=== PATIENT | male | born 2000 | race Caucasian/White ===

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

== ENCOUNTER 2018-01-04 19:47 | Emergency (ER) | payer MEDICAID, OTHER ==
[2018-01-04] MEDS ORDERED: NORCO 5/325 MG PO ONE ×2 (20:13→23:02)
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
[2018-01-04] MEDS ORDERED: NORCO 5/325 MG ONE ×2 (20:35→23:22)
[2018-01-04 23:26] VITALS: BP 142/80; PULSE 80; O2SAT 97
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
== END 2018-01-04 23:45 | disposition home or self-care (01) ==
LOC: ED 19:47
DX: S80.02XA Contusion of left knee, initial encounter (principal); M25.562 Pain in left knee; W20.8XXA Other cause of strike by thrown, projected or falling object, initial encounter
CPT/HCPCS: 73562; 99283; A9270-GY

== ENCOUNTER 2018-01-09 01:50 | Emergency (ER) | payer OTHER ==
[2018-01-09] MEDS ORDERED: BABY ASPIRIN 81 MG CHEW PO ONE (02:10)
[2018-01-09] MEDS ORDERED: LOPRESSOR 5 MG/5 ML INJECTION IV ONE ×2 (02:10→02:16)
[2018-01-09] MEDS ORDERED: Sodium Chloride 0.9% 1000 ML 1,000 ML IV STA (02:10)
[2018-01-09] MEDS ORDERED: Sodium Chloride 0.9% 1000 ML 1,000 ML ONE (02:16)
[2018-01-09] MEDS ORDERED: BABY ASPIRIN 81 MG CHEW ONE (02:16)
--- NOTE | 2018-01-09 02:20 | ERPHSYRPT ---
- History of Present Illness Time Seen by Provider: 01/09/18 02:00 Source: patient Exam Limitations: clinical condition Patient Subjective Stated Complaint: Pt feels his heart racing and causing him to shake all over Triage Nursing Assessment: Pt A&O x3, P 159, BP 168/82, complaining of chest pain, high anxiety, hasn't been taking his blood pressure medications due to being out, vomited twice, diarrhea, bilateral pulses normal Physician History: PATIENT WITH A HISTORY OF AN ANXIETY DISORDER, HYPERTENSION, NONCOMPLIANT WITH BLOOD PRESSURE MEDICATION LISINOPRIL 10 MG DAILY FOR 2 YEARS. HE COMPLAINS OF SEVERE ANXIETY, PALPITATIONS, CHEST TIGHTNESS TONIGHT. HE DENIES STREET DRUG USE, RADIATION OF PAIN TO BACK, JAW, NECK OR ARMS. ADMITS TO HAVING EPISODES OF EMESIS,X 2 AND WATERY DIARRHEA. Timing/Duration: today Activities at Onset: none Location: substernal Chest Pain Radiation: no radiation Severity of Pain-Max: mild Severity of Pain-Current: mild Modifying Factors: Improves With: other (ANXIETY) Nitro Today/Relief: no nitro taken today Aspirin Treatment Today: 81 mg x 4, provided by ED Associated Symptoms: vomiting, other (DIARRHEA) Prior Chest Pain/Cardiac Workup: no prior cardiac workup Allergies/Adverse Reactions: No Known Drug Allergies Allergy (Verified 01/09/18 02:15) Home Medications: Azithromycin 250 mg [Zithromax 250 MG TABLET] 250 mg PO DAILY 01/09/18 [ History] Prednisone 20 mg [Deltasone 20 mg] 20 mg PO DAILY 01/09/18 [History] Hx Tetanus, Diphtheria Vaccination/Date Given: No Hx Influenza Vaccination/Date Given: No Hx Pneumococcal Vaccination/Date Given: No - Review of Systems Constitutional: No Fever, No Chills Eyes: No Symptoms Ears, Nose, & Throat: No Symptoms Respiratory: No Symptoms, No Cough, No Dyspnea Cardiac: Chest Pain, Palpitations, No Edema, No Syncope Abdominal/Gastrointestinal: Nausea, Vomiting, No Abdominal Pain, No Diarrhea Genitourinary Symptoms: No Symptoms, No Dysuria Musculoskeletal: No Symptoms, No Back Pain, No Neck Pain Skin: No Symptoms, No Rash Neurological: No Dizziness, No Focal Weakness, No Sensory Changes Psychological: Anxiety Endocrine: No Symptoms All Other Systems: Reviewed and Negative - Past Medical History Pertinent Past Medical History: No Cardiac History: Hypertension - Past Surgical History Past Surgical History: No - Social History Smoking Status: Former smoker Exposure to second hand smoke: No Drug Use: marijuana Patient Lives Alone: No - Nursing Vital Signs Nursing Vital Signs: Initial Vital Signs Temperature 97.5 F 01/09/18 01:54 Pulse Rate 159 H 01/09/18 01:54 Respiratory Rate 13 01/09/18 01:54 Blood Pressure 168/82 01/09/18 01:54 Pain Scale Pain Intensity 0 - Physical Exam General Appearance: moderate distress, anxiety, other (EPISODES OF CRYING) Eye Exam: PERRL/EOMI, eyes nml inspection Ears, Nose, Throat Exam: normal ENT inspection, moist mucous membranes Neck Exam: normal inspection, non-tender, supple Respiratory Exam: normal breath sounds Cardiovascular Exam: normal heart sounds, tachycardia Gastrointestinal/Abdomen Exam: soft, normal bowel sounds Back Exam: normal inspection Extremity Exam: normal inspection, normal range of motion Neurologic Exam: alert, oriented x 3 Skin Exam: normal color SpO2 Interpretation: normal SpO2: 98 - Radiology Exams Chest X-ray Interpretation: Interpreted by me, Negative Ordered Tests: Active Orders 24 hr Category Date Time Status Dispatcher Relay STAT Care 01/09/18 02:11 Active EKG-ER Only STAT Care 01/09/18 02:10 Active IV Insertion STAT Care 01/09/18 02:10 Active Oxygen-ED Only NASAL CANNULA 2 lpm Care 01/09/18 02:10 Active CHEST 1 VIEW (PORTABLE) Stat Exams 01/09/18 03:19 Taken CBC W DIFF Stat Lab 01/09/18 02:10 Completed CMP Stat Lab 01/09/18 02:10 Completed NT PRO BNP Stat Lab 01/09/18 02:10 Completed PROTIME WITH INR Stat Lab 01/09/18 02:10 Completed TROPONIN Q3H Lab 01/09/18 02:10 Completed TROPONIN Q3H Lab 01/09/18 05:15 Ordered TROPONIN Q3H Lab 01/09/18 08:15 Ordered TROPONIN Q3H Lab 01/09/18 11:15 Ordered TROPONIN Q3H Lab 01/09/18 14:15 Ordered Urine Triage Profile Stat Lab 01/09/18 02:45 Completed Medication Summary Discontinued Medications Generic Name Dose Route Start Last Admin Trade Name Freq PRN Reason Stop Dose Admin Aspirin 324 mg 01/09/18 02:10 01/09/18 02:17 Baby Aspirin 81 Mg Chew PO 01/09/18 02:11 324 mg STAT ONE Administration Aspirin Confirm 01/09/18 02:16 Baby Aspirin 81 Mg Chew Administered 01/09/18 02:17 Dose 324 mg .ROUTE .STK-MED ONE Hydroxyzine HCl 25 mg 01/09/18 03:42 Atarax 25 Mg PO 01/09/18 03:43 STAT ONE Sodium Chloride 1,000 mls @ 999 mls/hr 01/09/18 02:10 01/09/18 02:17 Sodium Chloride 0.9% 1000 Ml IV 01/09/18 03:10 999 mls/hr .Q1H1M STA Administration Sodium Chloride Confirm 01/09/18 02:16 Sodium Chloride 0.9% 1000 Ml Administered 01/09/18 02:17 Dose 1,000 mls @ ud .ROUTE .STK-MED ONE Metoprolol Tartrate 5 mg 01/09/18 02:10 01/09/18 02:17 Lopressor 5 Mg/5 Ml Injection IV 01/09/18 02:11 5 mg STAT ONE Administration Metoprolol Tartrate Confirm 01/09/18 02:16 Lopressor 5 Mg/5 Ml Injection Administered 01/09/18 02:17 Dose 5 mg IV .STK-MED ONE Lab/Rad Data: Laboratory Result Diagrams 01/09/18 02:10 01/09/18 02:10 Laboratory Results 01/09/18 01/09/18 01/09/18 Range/Units 02:45 02:10 02:10 WBC (4.0-10.5) K/mm3 RBC (4.1-5.6) M/mm3 Hgb (12.5-18.0) gm/dl Hct (42-50) % MCV (78-100) fl MCH (26-32) pg MCHC (32-36) g/dl RDW (11.5-14.0) % Plt Count (150-450) K/mm3 MPV (6-9.5) fl Gran % (36.0-66.0) % Lymphocytes % (24.0-44.0) % Monocytes % (0.0-12.0) % Eosinophils % (0.00-5.0) % Basophils % (0.0-0.4) % Basophils # (0-0.4) INR 1.03 (0.8-3.0) Sodium (137-145) mmol/L Potassium (3.5-5.1) mmol/L Chloride (98-107) mmol/L Carbon Dioxide (22-30) mmol/L Anion Gap (5-15) MEQ/L BUN (9-20) mg/dL Creatinine (0.66-1.25) mg/dL Estimated GFR ML/MIN Glucose (74-106) mg/dL Calcium (8.4-10.2) mg/dL Total Bilirubin (0.2-1.3) mg/dL AST (17-59) U/L ALT (0-50) U/L Alkaline Phosphatase (38-126) U/L Troponin I < 0.012 (0.000-0.034) ng/mL NT-Pro-B Natriuret Pep (0-450) pg/mL Serum Total Protein (6.3-8.2) g/dL Albumin (3.5-5.0) g/dL Urine Opiates Level NEGATIVE (NEGATIVE) Ur Methadone NEGATIVE (NEGATIVE) Urine Barbiturates NEGATIVE (NEGATIVE) Ur Phencyclidine (PCP) NEGATIVE (NEGATIVE) Urine Amphetamine NEGATIVE (NEGATIVE) U Benzodiazepine Level POSITIVE (NEGATIVE) Urine Cocaine NEGATIVE (NEGATIVE) Urine Marijuana (THC) POSITIVE (NEGATIVE) 01/09/18 01/09/18 Range/Units 02:10 02:10 WBC 15.8 H (4.0-10.5) K/mm3 RBC 4.80 (4.1-5.6) M/mm3 Hgb 15.1 (12.5-18.0) gm/dl Hct 43.5 (42-50) % MCV 90.6 (78-100) fl MCH 31.5 (26-32) pg MCHC 34.7 (32-36) g/dl RDW 11.9 (11.5-14.0) % Plt Count 378 (150-450) K/mm3 MPV 9.0 (6-9.5) fl Gran % 68.9 H (36.0-66.0) % Lymphocytes % 26.5 (24.0-44.0) % Monocytes % 4.2 (0.0-12.0) % Eosinophils % 0.3 (0.00-5.0) % Basophils % 0.1 (0.0-0.4) % Basophils # 0.02 (0-0.4) INR (0.8-3.0) Sodium 141 (137-145) mmol/L Potassium 3.5 (3.5-5.1) mmol/L Chloride 101 (98-107) mmol/L Carbon Dioxide 23 (22-30) mmol/L Anion Gap 21.5 H (5-15) MEQ/L BUN 21 H (9-20) mg/dL Creatinine 0.75 (0.66-1.25) mg/dL Estimated GFR > 60 ML/MIN Glucose 138 H (74-106) mg/dL Calcium 10.0 (8.4-10.2) mg/dL Total Bilirubin 0.40 (0.2-1.3) mg/dL AST 18 (17-59) U/L ALT 23 (0-50) U/L Alkaline Phosphatase 91 (38-126) U/L Troponin I (0.000-0.034) ng/mL NT-Pro-B Natriuret Pep < 11.1 (0-450) pg/mL Serum Total Protein 8.3 H (6.3-8.2) g/dL Albumin 5.0 (3.5-5.0) g/dL Urine Opiates Level (NEGATIVE) Ur Methadone (NEGATIVE) Urine Barbiturates (NEGATIVE) Ur Phencyclidine (PCP) (NEGATIVE) Urine Amphetamine (NEGATIVE) U Benzodiazepine Level (NEGATIVE) Urine Cocaine (NEGATIVE) Urine Marijuana (THC) (NEGATIVE) - Progress Progress: improved Progress Note: 01/09/18 03:03 ADMINISTERED IV NORMAL SALINE 1 LITER/HR, LOPRESSOR 5MG IV, IMPROVED TO BP 139/ 89 PULSE 89 Counseled pt/family regarding: lab results, diagnosis, need for follow-up, rad results - Departure Time of Disposition: 03:50 Departure Disposition: Home Clinical Impression: HYPERTENSION, ARRHYTHMIA, SUBSTANCE ABUSE Condition: Stable Critical Care Time: No Referrals: LONA PLATA [Primary Care Provider] - Additional Instructions: BEGIN TOPROL XL 25MG, TAKE 1/2 TABLET EACH MORNING. ATARAX 25MG EVERY 6 HOURS NEEDED FOR ANXIETY. CONSULT YOUR PRIMARY CARE PROVIDE R FOR FOLLOWUP IN 1 WEEK Prescriptions: Hydroxyzine HCl 25 mg [Atarax 25 mg] 25 mg PO Q6H PRN PRN 4 Days #15 tablet PRN Reason: Anxiety Metoprolol Succinate 25 mg Xl* [Toprol-Xl 25MG Tablets] 25 mg PO DAILY #15 tab
[2018-01-09 02:21] LABS: BASOPHIL % 0.1 % (0.0-0.4); Basophil (Absolute #) 0.02 (0-0.4); Eosinophil % 0.3 % (0.00-5.0); Eosinophil (Absolute #) 0.04 (0-0.5); Granulocyte Absolute (ANC) 10.86 (1.4-6.9); Granulocytes % 68.9 % (36.0-66.0); Hematocrit 43.5 % (42-50); Hemoglobin 15.1 gm/dl (12.5-18.0); Lymphocyte (Absolute #) 4.18 (1.0-4.6); Lymphocytes % 26.5 % (24.0-44.0); Mean Cell Volume 90.6 fl (78-100); Mean Corpuscular Hemoglobin 31.5 pg (26-32); Mean Corpuscular Hgb Concent. 34.7 g/dl (32-36); Monocyte (Absolute #) 0.67 (0.0-1.3); Monocytes % 4.2 % (0.0-12.0); Platelet Count 378 K/mm3 (150-450); Red Cell Distribution Width 11.9 % (11.5-14.0); White Blood Count 15.8 K/mm3 (4.0-10.5)
[2018-01-09 02:33] LABS: INR 1.03 (0.8-3.0)
[2018-01-09 02:39] LABS: ALKALINE PHOSPHATASE 91 U/L (38-126); ANION GAP 21.5 MEQ/L (5-15); BLOOD UREA NITROGEN 21 mg/dL (9-20); CHLORIDE 101 mmol/L (98-107); Carbon Dioxide 23 mmol/L (22-30); Creatinine 1 0.75 mg/dL (0.66-1.25); Glucose 138 mg/dL (74-106); Potassium 3.5 mmol/L (3.5-5.1); SGOT/AST 18 U/L (17-59); SGPT/ALT 23 U/L (0-50); SODIUM 141 mmol/L (137-145); Total Protein 8.3 g/dL (6.3-8.2)
[2018-01-09 02:47] LABS: NT PRO BNP < 11.1 pg/mL (0-450)
[2018-01-09 03:03] VITALS: O2SAT 98
[2018-01-09 03:10] LABS: Amphetamine,Urine NEGATIVE (NEGATIVE); Barbiturate,Urine NEGATIVE (NEGATIVE); Benzodiazepine,Urine POSITIVE (NEGATIVE); Cocaine,Urine NEGATIVE (NEGATIVE); Methadone,Urine NEGATIVE (NEGATIVE); Opiate,Urine NEGATIVE (NEGATIVE); PCP,Urine NEGATIVE (NEGATIVE); THC,Urine POSITIVE (NEGATIVE)
[2018-01-09] MEDS ORDERED: ATARAX 25 MG PO ONE (03:42)
[2018-01-09] MEDS ORDERED: ATARAX 25 MG ONE (03:51)
[2018-01-09 03:59] VITALS: BP 141/89; PULSE 75
--- NOTE | 2018-01-09 08:06 | XRAY ---
Indication: Dyspnea. Comparison: None Portable chest demonstrates normal heart, lungs, and bony thorax.
== END 2018-01-09 04:00 | disposition home or self-care (01) ==
LOC: ED 01:50
DX: I10 Essential (primary) hypertension (principal); I49.9 Cardiac arrhythmia, unspecified; F19.10 Other psychoactive substance abuse, uncomplicated; Z91.14 Patient's other noncompliance with medication regimen; F41.9 Anxiety disorder, unspecified
CPT/HCPCS: 36000; 36415; 71045; 80053; 80307; 83880; 84484; 85025; 85610; 93005; 93041; 96360; 99284; A9270-GY

== ENCOUNTER 2023-05-09 20:10 | Emergency (ER) | payer OTHER ==
[2023-05-09 20:31] VITALS: BP 167/129; PULSE 112; O2SAT 97
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
== END 2023-05-09 20:36 | disposition left against medical advice (07) ==
LOC: ED 20:10
DX: F22 Delusional disorders (principal); I10 Essential (primary) hypertension; Z28.310 Unvaccinated for COVID-19; Z72.0 Tobacco use
CPT/HCPCS: 99281